=== PATIENT | female | born 1960 | race Caucasian/White ===

== ENCOUNTER 2021-05-27 21:30 | Emergency (ER) | payer MEDICARE, OTHER ==
[~2021-05-27] VITALS: Ht 162.6 cm; Wt 66.7 kg
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
--- NOTE | 2021-05-27 23:20 | NUR ---
PLACED PATIENT IN THE HALLWAY.
--- NOTE | 2021-05-28 00:10 | NUR ---
Patient discharged to home in stable condition. Written and verbal after care instructions given. Patient verbalizes understanding of instructions. Stressed follow up or return to ER for worsening s/s.
[2021-05-28] MEDS ORDERED: FLUT16SP16 NS (00:17)
[2021-05-28] MEDS ORDERED: AMOX-430 PO (00:17)
[2021-05-28] MEDS ORDERED: OXYM15MI4 NS (00:17)
[2021-05-28] MEDS ORDERED: AMOX500T2 PO (00:17)
[2021-05-28] MEDS ORDERED: PSEU120T83 PO (00:17)
== END 2021-05-28 00:15 | disposition home or self-care (01) ==
LOC: ER 21:37
DX: J32.9 Chronic sinusitis, unspecified (principal); K12.0 Recurrent oral aphthae; J44.9 Chronic obstructive pulmonary disease, unspecified; I25.2 Old myocardial infarction
CPT/HCPCS: A4663

== ENCOUNTER 2025-02-17 18:14 | Emergency (ER) | payer MEDICARE, OTHER ==
[~2025-02-17] VITALS: Ht 165.1 cm; Wt 59.0 kg
[~2025-02-17 18:14] MED LIST: AMOX-430 PO; AMOX500T2 PO; FLUT16SP16 NS; OXYM15MI4 NS; PSEU120T83 PO
[2025-02-17 18:48] VITALS: BP 130/77
[2025-02-17 19:15] LABS: *BILIRUBIN,URIN NEGATIVE (NEGATIVE); *BLOOD, URINE NEGATIVE (NEGATIVE); *CLARITY,URINE CLEAR (CLEAR); *COLOR,URINE YELLOW (YELLOW); *KETONES,URINE TRACE (NEGATIVE); *PROTEIN,URINE NEGATIVE (NEGATIVE); *UROBILINOGEN,URINE 0.2 E.U./dl (NORMAL); LEUKOCYTE ESTERASE ,URINE TRACE (NEGATIVE); NITRITE, URINE NEGATIVE (NEGATIVE); UGLUCOSE NEGATIVE (NEGATIVE)
[2025-02-17 19:25] LABS: SQUAMOUS EPITHELIAL CELL,UR FEW /HPF (NONE SEEN)
[2025-02-17 19:58] LABS: PLATELET COUNT (AUTO) 348 K/uL (179-408); RED BLOOD CELL COUNT(AUTO) 5.02 MIL/uL (3.63-4.92); RED CELL DISTRIBUTION WIDTH 23.7 % (12.3-17.7); WHITE BLOOD COUNT (AUTO) 5.9 K/uL (3.8-11.8)
[2025-02-17 20:01] LABS: CREATININE 0.7 mg/dL (0.6-1.3); SODIUM SERUM 142 mmol/L (136-145); UREA NITROGEN, BLOOD 11 mg/dL (7-18)
[2025-02-17 20:06] LABS: ASPARTATE AMINOTRANSFERASE 25 U/L (15-37); TOTAL PROTEIN, SERUM 7.5 g/dL (6.4-8.2)
[2025-02-17 20:39] LABS: EOSINOPHILS % (MANUAL) 2 % (0-8); LYMPHOCYTES % (MANUAL) 52 % (20-40); MONOCYTES % (MANUAL) 3 % (2-10); NEUTROPHILS % (MANUAL) 43 % (42-75)
[2025-02-17 20:40] LABS: PLATELET ESTIMATE ADEQUATE
[2025-02-17] MEDS ORDERED: NABU-140 PO (21:03)
[2025-02-17] MEDS ORDERED: IBUPROFEN 800 MG TABLET ONE (21:10)
[2025-02-17 21:12] VITALS: BP 130/77; O2SAT 97
[2025-02-17] MEDS: IBUPROFEN 800 MG TABLET PO ONE (21:12)
== END 2025-02-17 21:13 | disposition home or self-care (01) ==
LOC: ER 18:14
DX: R10.9 Unspecified abdominal pain (principal); R11.2 Nausea with vomiting, unspecified; J44.9 Chronic obstructive pulmonary disease, unspecified; Z59.02 Unsheltered homelessness; Z95.5 Presence of coronary angioplasty implant and graft; Z60.2 Problems related to living alone
CPT/HCPCS: 36415; 70030-TC; 84484; 87086; A4606; A4663

== ENCOUNTER 2025-02-24 16:44 | Emergency (ER) | payer MEDICARE, OTHER ==
[~2025-02-24] VITALS: Ht 160 cm; Wt 55.8 kg
[~2025-02-24 16:44] MED LIST changes: +NABU-140 PO
[2025-02-24] MEDS: IV NORMAL SALINE 1000 ML BAG IV ONE (18:00)
[2025-02-24 18:29] LABS: CREATININE 0.5 mg/dL (0.6-1.3); SODIUM SERUM 138 mmol/L (136-145); UREA NITROGEN, BLOOD 10 mg/dL (7-18)
[2025-02-24 18:29] LABS: *BILIRUBIN,URIN NEGATIVE (NEGATIVE); *BLOOD, URINE NEGATIVE (NEGATIVE); *CLARITY,URINE CLEAR (CLEAR); *COLOR,URINE YELLOW (YELLOW); *KETONES,URINE TRACE (NEGATIVE); *PROTEIN,URINE NEGATIVE (NEGATIVE); *UROBILINOGEN,URINE 0.2 E.U./dl (NORMAL); LEUKOCYTE ESTERASE ,URINE 1+ (NEGATIVE); NITRITE, URINE NEGATIVE (NEGATIVE); UGLUCOSE NEGATIVE (NEGATIVE)
[2025-02-24 18:35] LABS: ASPARTATE AMINOTRANSFERASE 28 U/L (15-37); TOTAL PROTEIN, SERUM 6.7 g/dL (6.4-8.2)
[2025-02-24] MEDS ORDERED: IOHEXOL 300MG/ML 100 ML INFUS..BTL ONE (18:38)
[2025-02-24] MEDS ORDERED: IV NORMAL SALINE 250 ML IV ONE (18:38)
[2025-02-24] MEDS ORDERED: SWABABLE VALVE TRANSFER SET EA MC ONE (18:38)
[2025-02-24 18:40] LABS: SQUAMOUS EPITHELIAL CELL,UR FEW /HPF (NONE SEEN)
[2025-02-24 19:45] VITALS: BP 101/62
[2025-02-24 20:23] LABS: PLATELET COUNT (AUTO) 327 K/uL (179-408); RED BLOOD CELL COUNT(AUTO) 4.61 MIL/uL (3.63-4.92); RED CELL DISTRIBUTION WIDTH 24.0 % (12.3-17.7); WHITE BLOOD COUNT (AUTO) 6.1 K/uL (3.8-11.8)
[2025-02-24 20:31] LABS: ERYTHROCYTE SEDIMENTATION RATE 25.0 MM/HR (0-20)
[2025-02-24 21:01] LABS: BAND % (MANUAL) 1 % (0-10); EOSINOPHILS % (MANUAL) 3 % (0-8); LYMPHOCYTES % (MANUAL) 24 % (20-40); MONOCYTES % (MANUAL) 3 % (2-10); NEUTROPHILS % (MANUAL) 69 % (42-75); PLATELET ESTIMATE ADEQUATE
[2025-02-24] MEDS ORDERED: PANT20TA2 PO (21:50)
[2025-02-24] MEDS ORDERED: ONDA4TAB11 PO (21:50)
[2025-02-24 22:10] VITALS: BP 105/66; O2SAT 98
== END 2025-02-24 22:00 | disposition home or self-care (01) ==
LOC: ER 16:44
DX: R10.A3 Flank pain, bilateral (principal); D50.9 Iron deficiency anemia, unspecified; R53.81 Other malaise; M54.50 Low back pain, unspecified; E78.5 Hyperlipidemia, unspecified; J43.9 Emphysema, unspecified; R50.9 Fever, unspecified; R11.2 Nausea with vomiting, unspecified; Z59.02 Unsheltered homelessness; Z79.899 Other long term (current) drug therapy; Z86.16 Personal history of COVID-19; Z95.5 Presence of coronary angioplasty implant and graft; Z60.2 Problems related to living alone
CPT/HCPCS: 99285; 74177; 96360; 71045; 80076; 80048; 81001; 83690; 85007; 85027; 85651; 85730; 87086; 84484 ×2; 36415; 93005; Q9967; J7040; 70030-TC; A4606; A4663